=== PATIENT | female | born 1980 | race Caucasian/White ===

== ENCOUNTER 2019-06-30 00:43 | Inpatient (IN) | payer SELFPAY ==
[2019-06-30] VITALS (7 sets, daily range): BP systolic 105–126; BP diastolic 53–81; PULSE 79–98; RESP 16–22; TEMP 36.4–37.1; O2SAT 95–99; BMI 29.2
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
--- NOTE | 2019-06-30 00:52 | ECG_ITS ---
Measurements Intervals [place] Rate: 84 P: 61 DC: 199 QRS: 42 QRSD: 84 T: 56 QT: 398 QTc: 472 SINUS RHYTHM Compared to ECG 03/24/2018 10:22:27 Sinus arrhythmia no longer present Electronically Signed On 06-30-2019 18:33:03 INPATIENT PHARMACIST by Edwin Calzada M.D. [email or web address]
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
[2019-06-30 01:04] LABS: Basophils # 0.1 10^3/uL (0.0-0.1); Basophils % 0.6 %; Eosinophils # 0.1 10^3/uL (0.0-0.8); Hematocrit 39.4 % (37.0-47.0); Hemoglobin 13.2 g/dL (11.5-15.3); Lymphocytes # 1.7 10^3/uL (0.8-4.8); Lymphocytes % 13.2 %; Mean Corpuscular HGB Conc 33.5 g/dL (30.0-36.0); Mean Corpuscular Hemoglobin 31.5 pg (28.0-34.0); Mean Platelet Volume 9.9 fL (7.4-10.4); Monocytes # 0.5 10^3/uL (0.2-0.9); Monocytes % 3.9 %; Neutrophils # 10.2 10^3/uL (1.8-7.7); Nucleated Red Blood Cells % 0 %; Platelet Count 239 10^3/cmm (130-400); Red Blood Count 4.19 10^6/uL (4.1-5.3); Red Cell Distribution Width 13.4 % (12.1-15.1); White Blood Count 12.6 10^3/uL (4.0-10.0)
[2019-06-30 01:31] LABS: Alanine Aminotransferase 13 U/L (0-33); Albumin Level 4.1 g/dL (3.5-5.2); Alcohol Level 141 mg/dL (0-10); Alkaline Phosphatase 109 IU/L (35-105); Anion Gap 21.9 (5-19); Aspartate Amino Transferase 21 U/L (0-32); Blood Urea Nitrogen 17 mg/dL (6-20); Calcium 9.2 mg/dL (8.5-10.5); Carbon Dioxide 19 mmol/L (22-29); Chloride 101 mmol/L (98-107); Globulin 3.7 g/dL (1.3-4.6); Glomerular Filtration Rate 62.4 mL/min (90-130); Glucose 94 mg/dL (74-109); Potassium 3.9 mmol/L (3.5-5.1); Sodium 138 mmol/L (136-145); Thyroid Stimulating Hormone 5.77 uIU/mL (0.27-4.20); Total Bilirubin 0.2 mg/dL (0.15-1.2); Total Protein 7.8 g/dL (6.6-8.7)
[2019-06-30 01:38] LABS: HCG Qualitative Urine. Negative (Negative)
[2019-06-30 01:40] LABS: Acetaminophen < 5.0 ug/mL (10-30); Salicylate < 0.3 mg/dL (3-10)
[2019-06-30 01:56] LABS: Valproic Acid Level 2.8 mcg/mL (50-100)
[2019-06-30 01:57] LABS: Lithium 0.1 mmol/L (0.6-1.2)
[2019-06-30 02:05] LABS: Add Urine Microscopic? NO
[2019-06-30 02:16] LABS: Blood Urine Neg (Negative); Glucose Urine UA Norm (Normal); Ketones Urine 1+ (Negative); Nitrate Urine Negative (Negative); Protein Urine Neg (Negative); Urine Appearance Clear (CLEAR); Urine Color Yellow (Yellow); pH Urine 5 (5-7)
[2019-06-30 02:17] LABS: Bilirubin Urine Neg (NEGATIVE); Leukocyte Esterase Urine Negative (Negative); Urobilinogen Urine Norm (Negative)
[2019-06-30 02:22] LABS: Amphetamines Screen Urine Negative (Negative); Barbiturates Screen Urine Negative (Negative); Benzodiazepines Screen Urine Negative (Negative); Cocaine Screen Urine Negative (Negative); Opiate Screen Urine Negative (Negative); PCP Screen Urine Negative (Negative); THC Screen Urine Positive (Negative)
[2019-06-30] MEDS: multivitamin therapeutic Tablet 1 TAB PO (09:55)
[2019-06-30] MEDS: folic acid 1 mg Tablet PO (09:55)
[2019-06-30] MEDS: thiamine 100 mg Tablet PO (09:55)
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
[2019-06-30] MEDS: duloxetine 60 mg Capsule 120 MG PO (13:03)
[2019-06-30] MEDS: quetiapine 100 mg Tablet PO (20:31)
[2019-07-01 06:00] VITALS: BP 110/73; PULSE 69; RESP 18; TEMP 36.9; O2SAT 97
[2019-07-01] MEDS: folic acid 1 mg Tablet PO (08:38)
[2019-07-01] MEDS: multivitamin therapeutic Tablet 1 TAB PO (08:38)
[2019-07-01] MEDS: thiamine 100 mg Tablet PO (08:41)
[2019-07-01] MEDS: duloxetine 60 mg Capsule 120 MG PO (08:41)
[2019-07-01 13:31] VITALS: BP 130/86; PULSE 94; RESP 18; TEMP 36.9; O2SAT 97
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
[2019-07-01] MEDS: quetiapine 100 mg Tablet PO (20:22)
[2019-07-01 20:24] VITALS: BP 127/74; PULSE 87; RESP 20; TEMP 37; O2SAT 97
[2019-07-02 05:59] VITALS: BP 95/53; PULSE 78; RESP 20; TEMP 37.1; O2SAT 96
[2019-07-02] MEDS: duloxetine 60 mg Capsule 120 MG PO (08:48)
[2019-07-02] MEDS: thiamine 100 mg Tablet PO (08:48)
[2019-07-02] MEDS: folic acid 1 mg Tablet PO (08:48)
[2019-07-02] MEDS: multivitamin therapeutic Tablet 1 TAB PO (08:48)
[2019-07-02 14:00] VITALS: BP 113/66; PULSE 75; RESP 18; TEMP 37.1; O2SAT 97
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
[2019-07-02 14:08] VITALS: BP 95/53; PULSE 78; RESP 20; TEMP 37.1; O2SAT 96
[2019-07-02 14:17] VITALS: BP 95/53; PULSE 78; RESP 20; TEMP 37.1; O2SAT 96
== END 2019-07-02 15:16 | disposition home or self-care (01) | DRG 897 ==
LOC: ER 02:04 → NP 12:09
PROVIDERS: Emergency Provider Emergency Medicine
DX: F10.129 Alcohol abuse with intoxication, unspecified (principal); R45.851 Suicidal ideations; F32.9 Major depressive disorder, single episode, unspecified
CPT/HCPCS: 12345; 36415; 80053; 80164; 80178; 80307; 81003; 81025; 84443; 85025; 93005; 99282

== ENCOUNTER 2020-05-29 10:58 | Outpatient (CLI) | payer MEDICAID, SELFPAY ==
--- NOTE | 2020-05-29 11:01 | XR_ITS ---
WS: [id number] Exam: XR ribs RT 2V* [id number] Date/Time of Exam: 05/29/2020 11:26 AM Reason For Exam: right rib pain The right ribs are intact. No fracture. The right lung is fully inflated and clear. XR/XR ribs RT 2V* [id number] IMPRESSION: 1. Negative right rib study.
== END 2020-05-29 10:59 | disposition home or self-care (01) ==
LOC: RAD 11:00
PROVIDERS: Visit Provider Nurse Practitioner Family
DX: R07.81 Pleurodynia (principal)
CPT/HCPCS: 71100

== ENCOUNTER → 2020-06-24 10:13 | Outpatient (BNVA) | payer MEDICAID, SELFPAY | PROVIDERS: Visit Provider Nurse Practitioner Family | DX: Z20.828 Contact with and (suspected) exposure to other viral communicable diseases (principal) | CPT/HCPCS: 87635 ==

== ENCOUNTER → 2020-09-14 11:21 | Outpatient (BNVA) | payer MEDICAID, SELFPAY | PROVIDERS: Visit Provider Nurse Practitioner | DX: F31.81 Bipolar II disorder (principal) | CPT/HCPCS: 99214 ==

== ENCOUNTER 2020-11-04 09:36 | Emergency (ER) | payer MEDICAID, SELFPAY ==
[2020-11-04 09:45] VITALS: BP 132/90; PULSE 87; RESP 20; TEMP 36.8; O2SAT 98; BMI 33.0
--- NOTE | 2020-11-04 09:57 | W.ED.BACK ---
HPI - Back Pain/Injury General: Chief Complaint: Back Pain/Injury Stated Complaint: BACK PAIN Time Seen by Provider: 11/04/20 09:41 History of Present Illness: HPI Narrative: Patient is a 39-year-old female with back pain. Pain is on the left mid back region. She denies any acute trauma or accident. symptoms started approximately week ago when she pulled back muscle while working. She says the back pain was healing up and was getting better but today she woke up and had sharp pains mid upper back left side. She said her back was healing up this past week she did start working again for the past 2 days and thinks that might of flared up her existing back pain. She rates the pain a 10 out of 10. Denies fever, chills, nausea/vomiting, dysuria or hematuria. Associated symptoms: Deny abdominal pain, chills, dysuria, fatigue, fever(s), hematuria, nausea or vomiting Review of Systems Const: Denies: fever(s), chills or fatigue Eyes: Denies: change in vision or eye discomfort ENMT: Denies: throat pain, odynophagia, nasal discharge or nasal congestion Card: Denies: chest pain, palpitations, edema, swelling of feet/ankles, dyspnea on exertion or orthopnea Resp: Denies: dyspnea, productive cough or non-productive cough GI: Denies: abdominal pain, nausea, vomiting, diarrhea, constipation or hematochezia : Denies: flank pain, dysuria or hematuria Musc: Reports: back pain; Denies: neck pain or extremity swelling Skin/Breast: Denies: rash or new lesions Neuro: Denies: headache(s), numbness in extremities or weakness in extremities PFSH ED PFSH: Medical History Bipolar II disorder Fistula Tubal Surgical History History of cholecystectomy Previous section Family History Grandmother Hypercholesteremia Paternal Denies family history of Colon cancer Ovarian cancer Diabetes Heart disease Breast cancer Bleeding disorder Hypertension Uterine cancer Thyroid disease Stroke Social History Smoking and tobacco status: never smoked Alcohol intake: current Alcohol intake frequency: few times a week Additional social history: - Tobacco use: Alcohol use: Drug use: Female Reproductive History: Para: 1 Spontaneous abortions: No Physical Exam Const: COMMON NORMALS: no acute distress, patient oriented x3 and alert GENERAL APPEARANCE: cooperative and comfortable HENMT: COMMON NORMALS: normocephalic HEAD & SCALP: normocephalic MOUTH: Normal oral and palatal mucosa present THROAT: posterior oropharynx normal and uvula midline Eye: COMMON NORMALS: Equal, round and reactive pupils present PUPIL: Yes Equal, round and reactive pupils present Neck/C-Spine: COMMON NORMALS: supple GENERAL: Yes normal visual inspection Resp: COMMON NORMALS: normal respiratory effort, No retractions, No use of accessory muscles and clear to auscultation bilaterally AUSCULTATION: clear to auscultation bilaterally Cardio: COMMON NORMALS: regular rate, regular rhythm, S1 normal heart sound present, S2 normal heart sound present, No gallops present (Cardio), No clicks present (Cardio), No murmurs present (Cardio) and Peripheral pulses 2+ throughout RATE: regular rate RHYTHM: regular rhythm HEART SOUNDS: S1 normal heart sound present and S2 normal heart sound present PERIPHERAL PULSES: Peripheral pulses 2+ throughout GI: COMMON NORMALS: Normal to inspection, nondistended, normoactive bowel sounds present, Soft to palpation, non-tender and no masses PALPATION: Yes Soft to palpation : COMMON NORMALS: Yes no CVA tenderness BLADDER/KIDNEY EXAM: Yes no CVA tenderness Back/Pelvis: COMMON NORMALS: no CVA tenderness THORACIC SPINE/UPPER BACK: Yes pain with ROM, No thoracic spinal tenderness, Yes paraspinal muscle tenderness Thoracic paraspinal muscle tenderness: left Left thoracic paraspinal muscle tenderness: T5, T6 and T7 and Yes other soft tissue findings Other thoracic soft tissue findings laterality: left Left other thoracic soft tissue findings details: tenderness (Muscular tenderness) Extremity: COMMON NORMALS: normal to inspection Neuro: COMMON NORMALS: patient oriented x3 SENSORIUM/ORIENTATION: Yes alert Skin: GENERAL SKIN EXAM: dry skin Course Vital Signs: Vital signs: Vital Signs Temperature 98.7 F 11/04/20 11:27 Pulse Rate 72 11/04/20 11:27 Respiratory Rate 17 11/04/20 11:27 Blood Pressure 130/88 11/04/20 11:27 Pulse Oximetry 98 11/04/20 11:27 MDM - Back Pain/Injury MDM Narrative: Medical decision making narrative: Patient is a 39-year-old female comes to the ED with left upper back pain. Denies any acute injury or trauma. Patient says she strained her back muscle at work over a week ago and that patient has some muscular tenderness on left side patient's upper back. No other acute findings. Patient was diagnosed with muscle strain of left upper back discharged home with a prescription for Flexeril and ibuprofen 800 mg. Follow-up with PCP in 7 to 10 days for reevaluation. Return to ED precautions given. Patient understood and agreed with plan. Discharge Plan Discharge Patient Disposition: Home Clinical Impression: Muscle strain of left upper back Qualifiers: Encounter type: initial encounter Qualified Code(s): S29.012A - Strain of muscle and tendon of back wall of thorax, initial encounter Condition: Stable Prescriptions: New cyclobenzaprine 10 mg tablet 10 mg PO BID PRN (Reason: muscle spasm) Qty: 20 RF: 0 ibuprofen 800 mg tablet 800 mg PO Q8H PRN (Reason: pain) Qty: 20 RF: 0 Zofran 4 mg tablet 4 mg PO Q8H Qty: 12 RF: 0 No Action albuterol sulfate [ProAir HFA] 90 mcg/actuation HFA aerosol inhaler 2 puff INHALATION QID PRN (Reason: shortness of breath or wheezing) RF: 0 acamprosate 333 mg tablet,delayed release (DR/EC) 666 mg PO TID Qty: 180 RF: 0 duloxetine [Cymbalta] 30 mg capsule,delayed release(DR/EC) 90 mg PO DAILY Qty: 90 RF: 1 Seroquel 100 mg tablet 100 mg PO DAILY PRN (Reason: severe agitation/anxiety) 30 Days Qty: 30 RF: 1 quetiapine [Seroquel] 400 mg tablet 400 mg PO .HS Qty: 30 RF: 1 ibuprofen 800 mg tablet 800 mg PO TID PRN (Reason: pain) Qty: 20 RF: 0 Discharge Orders: Discharge ED (Routine); Ordered 11/04/20 Ordered By: Akira Gilbert Discharge Diet: Regular Discharge Activity: Increase activity as tolerated Patient Instructions: Muscle Strain (ED), Back Pain (ED) Activity Restrictions/Additional Instructions: Follow-up with medical provider as directed in 7 to 10 days. Apply cold pack or heat pack on sore area of back to help with symptoms. Rest and stretch daily. Take medications as prescribed. Return to the ER or your medical provider if condition worsens. Please read and understand discharge instructions. Thank you for choosing [facility] for your healthcare needs today. Please realize this is an emergency room and that we are providing you with a medical screening exam and this may not be complete and all inclusive of all the testing and or work up that you may need to determine your ailment or severity of your illness. It is very important that you follow up as instructed or that you return to the Emergency Department should you have concerns or if your condition changes or worsens in any way. Stand Alone Forms: Work/School Release Coding Level of Care Code ED Public Health Educator for Yenifer Bonilla Exam Comprehensive
[2020-11-04 10:02] VITALS: RESP 19
[2020-11-04] MEDS: morphine 4 mg/mL SDV 1 mL IM (10:02)
[2020-11-04] MEDS: orphenadrine 30 mg/mL Inj 2 mL 60 MG IM (10:02)
[2020-11-04] MEDS: ondansetron 2 mg/ML SDV 2 mL 4 MG IM (11:25)
[2020-11-04 11:27] VITALS: BP 130/88; PULSE 72; RESP 17; TEMP 37.1; O2SAT 98
== END 2020-11-04 11:30 | disposition home or self-care (01) ==
PROVIDERS: Emergency Provider Physician Assistant
DX: S29.012A Strain of muscle and tendon of back wall of thorax, initial encounter (principal); X50.9XXA Other and unspecified overexertion or strenuous movements or postures, initial encounter
CPT/HCPCS: 96372; 99283; J2270; J2360; J2405

== ENCOUNTER → 2020-11-07 09:47 | Outpatient (BNVA) | payer MEDICAID, SELFPAY | PROVIDERS: Visit Provider Nurse Practitioner | DX: F31.9 Bipolar disorder, unspecified (principal) | CPT/HCPCS: 99214 ==

== ENCOUNTER → 2020-12-19 07:16 | Outpatient (BNVA) | payer MEDICAID, SELFPAY | PROVIDERS: Visit Provider Nurse Practitioner | DX: F31.81 Bipolar II disorder (principal) | CPT/HCPCS: 99214 ==

== ENCOUNTER → 2021-03-09 12:00 | Outpatient (BNVA) | payer MEDICAID, SELFPAY | PROVIDERS: Visit Provider Nurse Practitioner | DX: F31.81 Bipolar II disorder (principal); F12.20 Cannabis dependence, uncomplicated | CPT/HCPCS: 99214 ==

== ENCOUNTER 2021-04-25 16:21 | Emergency (ER) | payer MEDICAID, SELFPAY ==
--- NOTE | 2021-04-25 16:32 | XRR_ITS ---
PROCEDURE INFORMATION: Exam: XR Left Foot Exam date and time: 04/25/2021 4:32 PM Age: 40 years old Clinical indication: Pain and injury or trauma; Other: No injury per PT; Blunt trauma; Left; Patient HX: Lt. Foot pain x 1 month; Additional info: Left foot injury TECHNIQUE: Imaging protocol: XR Left foot. Views: 3 or more views. COMPARISON: No relevant prior studies available. FINDINGS: Bones/joints: There is moderate plantar calcaneal spur. There is no evidence of fracture or dislocation. Soft tissues: Normal. XR/XR foot LT min 3V* [id number] IMPRESSION: 1. No acute finding. 2. Plantar calcaneal spur. Radiation Dose CTDIVOL = (mGy): DLP = (mGy-cm)
[2021-04-25 16:52] VITALS: BP 121/83; PULSE 83; RESP 16; TEMP 36.8; O2SAT 99
--- NOTE | 2021-04-25 17:09 | ED_ITS ---
HPI - Extremity Problem General: Chief complaint: Extremity Problem,Nontraumatic Stated complaint: LEFT FOOT INJURY Time Seen by Provider: 04/25/21 17:08 History of Present Illness: HPI Narrative: Patient is a 40-year-old female comes to the ED with left heel pain. Patient says she has had this pain for several months and has seen her PCP several weeks ago received a injection around her heel to help with pain. She denies any reinjury or trauma but says t he pain is started up again in the heel. She takes [id number] ibuprofen to help with the pain. Patient says symptoms get worse throughout the day as she has been up and ambulating. Associated symptoms: Deny chest pain, fever(s) or rash Review of Systems Const: Denies: fever(s), chills or fatigue Eyes: Denies: change in vision or eye discomfort ENMT: Denies: throat pain, odynophagia, nasal discharge or nasal congestion Card: Denies: chest pain, palpitations, edema, swelling of feet/ankles, dyspnea on exertion or orthopnea Resp: Denies: dyspnea, productive cough or non-productive cough GI: Denies: abdominal pain, nausea, vomiting, diarrhea, constipation or hematochezia : Denies: flank pain, dysuria or hematuria Musc: Reports: extremity pain (Left heel); Denies: neck pain, back pain or extremity swelling Skin/Breast: Denies: rash or new lesions Neuro: Denies: headache(s), numbness in extremities or weakness in extremities PFS ED PFSH: Medical History Bipolar II disorder Cannabis dependence, uncomplicated Fistula Psychiatric care Tubal Surgical History History of cholecystectomy Previous section Family History Grandmother Hypercholesteremia Paternal Denies family history of Colon cancer Ovarian cancer Diabetes Heart disease Breast cancer Bleeding disorder Hypertension Uterine cancer Thyroid disease Stroke Social History Smoking and tobacco status: never smoked Alcohol intake: current Alcohol intake frequency: few times a week Additional social history: - Tobacco use: Alcohol use: Drug use: Female Reproductive History: Para: 1 Spontaneous abortions: No Physical Exam Const: COMMON NORMALS: no acute distress, patient oriented x3 and alert GENERAL APPEARANCE: cooperative and comfortable HENMT: COMMON NORMALS: normocephalic HEAD & SCALP: normocephalic MOUTH: Normal oral and palatal mucosa present THROAT: posterior oropharynx normal and uvula midline Neck/C-Spine: COMMON NORMALS: supple GENERAL: Yes normal visual inspection Resp: COMMON NORMALS: normal respiratory effort, No retractions, No use of accessory muscles and clear to auscultation bilaterally AUSCULTATION: clear to auscultation bilaterally Cardio: COMMON NORMALS: regular rate, regular rhythm, S1 normal heart sound present, S2 normal heart sound present, No gallops present (Cardio), No clicks present (Cardio), No murmurs present (Cardio) and Peripheral pulses 2+ throughout RATE: regular rate RHYTHM: regular rhythm HEART SOUNDS: S1 normal heart sound present and S2 normal heart sound present PERIPHERAL PULSES: Peripheral pulses 2+ throughout GI: COMMON NORMALS: Normal to inspection, nondistended, normoactive bowel sounds present, Soft to palpation, non-tender and no masses PALPATION: Yes Soft to palpation : COMMON NORMALS: Yes no CVA tenderness BLADDER/KIDNEY EXAM: Yes no CVA tenderness Back/Pelvis: COMMON NORMALS: no CVA tenderness Extremity: GENERAL: Yes normal exam except as noted LEFT LOWER EXTREMITY: Yes foot & digits Left foot and digits: Yes palpation (Tenderness over plantar aspect of heel.) Neuro: COMMON NORMALS: patient oriented x3 and moves all extremities SENSORIUM/ORIENTATION: Yes alert Skin: GENERAL SKIN EXAM: dry skin Course Vital Signs: Vital signs: Vital Signs Temperature 98.2 F 04/25/21 16:52 Pulse Rate 83 04/25/21 16:52 Respiratory Rate 16 04/25/21 16:52 Blood Pressure 121/83 04/25/21 16:52 Pulse Oximetry 99 04/25/21 16:52 MDM - Extremity (Nontraumatic) MDM Narrative: Medical decision making narrative: Patient is a 40-year-old female comes to the ED with left heel pain. She has been dealing with this pain for the past couple months and has had a injection in heel by PCP in the past to help with symptoms. Denies any acute injury or trauma to cause symptoms. X-ray of left foot shows no acute findings. Patient diagnosed with plantar fasciitis and she was discharged home. She was sent home with a prescription for Celebrex for pain and told to rest and ice left foot elbow symptoms. Return to ED precautions given. Patient understood agree with plan. Imaging Data^: Xray Ortho: Attestation: I personally reviewed and interpreted this imaging study as follows: Radiologist's impression: [address], [place] [address]BNji ReportSigned Patient: Maru Piedra #: [id number]: 1980Acct#:[id number]/Sex: 40 / FADM Date: 04/25/21Loc: ERRoom/Bed:Attending Dr: Ordering Provider/Ordering MD: Gifty Barron Date of Service: 04/25/21 Procedure(s): XR foot LT min 3V* [id number] Accession Number(s): [id number] Report Number: [id number] PROCEDURE INFORMATION: Exam: XR Left Foot Exam date and time: 04/25/2021 4:32 PM Age: 40 years old Clinical indication: Pain and injury or trauma; Other: No injury per PT; Blunt trauma; Left; Patient HX: Lt. Foot pain x 1 month; Additional info: Left foot injury TECHNIQUE: Imaging protocol: XR Left foot. Views: 3 or more views. COMPARISON: No relevant prior studies available. FINDINGS: Bones/joints: There is moderate plantar calcaneal spur. There is no evidence of fracture or dislocation. Soft tissues: Normal. XR/XR foot LT min 3V* [id number] IMPRESSION: 1. No acute finding. 2. Plantar calcaneal spur. Radiation Dose CTDIVOL = (mGy): DLP = (mGy-cm) Dictated By:Shayna Coker By:Shayna Coker Date/Time:04/25/21 174DD/ 163 Discharge Plan Discharge Patient Disposition: Home Clinical Impression: Plantar fasciitis, Plantar fasciitis of left foot Condition: Stable Prescriptions: New Celebrex 100 mg capsule 100 mg PO BID PRN (Reason: pain) Qty: 20 RF: 0 No Action albuterol sulfate [ProAir HFA] 90 mcg/actuation HFA aerosol inhaler 2 puff INHALATION QID PRN (Reason: shortness of breath or wheezing) RF: 0 quetiapine [Seroquel] 400 mg tablet 400 mg PO .HS Qty: 30 RF: 2 duloxetine [Cymbalta] 60 mg capsule,delayed release(DR/EC) 120 mg PO DAILY Qty: 60 RF: 2 acamprosate 333 mg tablet,delayed release (DR/EC) 666 mg PO TID Qty: 180 RF: 2 quetiapine [Seroquel] 100 mg tablet 100 mg PO .HS Qty: 30 RF: 2 ibuprofen 800 mg tablet 800 mg PO Q8H PRN (Reason: pain) Qty: 20 RF: 0 Zofran 4 mg tablet 4 mg PO Q8H Qty: 12 RF: 0 Discharge Orders: Discharge ED (Routine); Ordered 04/25/21 Ordered By: Akira Gilbert Discharge Diet: Regular Discharge Activity: Resume usual activity Patient Instructions: Plantar Fasciitis (ED), Plantar Fasciitis Exercises (ED) Activity Restrictions/Additional Instructions: Follow-up with medical provider as directed in 7 to 10 days for reevaluation. Take medications as prescribed. Apply cold pack on left foot to help with symptoms. Return to the ER or your medical provider if condition worsens. Please read and understand discharge instructions. Thank you for choosing [facility] for your healthcare needs today. Please realize this is an emergency room and that we are providing you with a medical screening exam and this may not be complete and all inclusive of all the testing and or work up that you may need to determine your ailment or severity of your illness. It is very important that you follow up as instructed or that you return to the Emergency Department should you have concerns or if your condition changes or worsens in any way. Coding Level of Care Code ED Beamer Helper for Yenifer Fwtae Exam Comprehensive
== END 2021-04-25 17:32 | disposition home or self-care (01) ==
PROVIDERS: Emergency Provider Physician Assistant
DX: M72.2 Plantar fascial fibromatosis (principal); F31.81 Bipolar II disorder
CPT/HCPCS: 73630; 99282

== ENCOUNTER → 2021-06-09 10:20 | Outpatient (BNVA) | payer MEDICAID, SELFPAY | PROVIDERS: Visit Provider Family Medicine | DX: N39.0 Urinary tract infection, site not specified (principal) | CPT/HCPCS: 81000 ==

== ENCOUNTER → 2021-07-11 11:07 | Outpatient (BNVA) | payer MEDICAID, SELFPAY | PROVIDERS: Visit Provider Nurse Practitioner | DX: F31.81 Bipolar II disorder (principal); F12.20 Cannabis dependence, uncomplicated; Z79.899 Other long term (current) drug therapy | CPT/HCPCS: 99214 ==

== ENCOUNTER → 2021-07-28 11:36 | Outpatient (BNVA) | payer MEDICAID, SELFPAY | PROVIDERS: Visit Provider Nurse Practitioner | DX: Z20.822 Contact with and (suspected) exposure to COVID-19 (principal) | CPT/HCPCS: 87400; 87635 ==

== ENCOUNTER → 2021-11-06 09:20 | Outpatient (BNVA) | payer MEDICAID, SELFPAY | PROVIDERS: Visit Provider Nurse Practitioner | DX: F31.81 Bipolar II disorder (principal); F12.20 Cannabis dependence, uncomplicated | CPT/HCPCS: 99214 ==

== ENCOUNTER → 2022-08-12 10:56 | Outpatient (BNVA) | payer MEDICAID, SELFPAY | PROVIDERS: PCP Family Medicine; Visit Provider Family Medicine | DX: F31.81 Bipolar II disorder (principal) | CPT/HCPCS: 80053; 80061; 85025 ==

== ENCOUNTER → 2023-07-21 12:15 | Outpatient (BNVA) | payer MEDICAID, SELFPAY | PROVIDERS: PCP Family Medicine; Visit Provider Nurse Practitioner | DX: Z79.899 Other long term (current) drug therapy (principal) | CPT/HCPCS: 80061; 83036 ==

== ENCOUNTER → 2024-08-27 09:37 | Outpatient (BNVA) | payer MEDICAID, SELFPAY | PROVIDERS: PCP Family Medicine; Visit Provider Nurse Practitioner | DX: Z79.899 Other long term (current) drug therapy (principal) | CPT/HCPCS: 80061; 83036 ==

== ENCOUNTER 2024-12-11 03:54 | Inpatient (IN) | payer SELFPAY ==
[2024-12-11 04:09] VITALS: BP 165/87; PULSE 107; RESP 24; TEMP 36.9; O2SAT 96; BMI 35.9
--- NOTE | 2024-12-11 04:26 | ECG_ITS ---
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 Measurements Intervals [place] Rate: 91 P: 2 MS: 159 QRS: 72 QRSD: 80 T: 47 QT: 359 QTc: 443 Interpretive Statements SINUS RHYTHM No previous ECG available for comparison Electronically Signed On 12-14-2024 10:12:56 CDT by Cecelia Begum M.D. [id number]
[2024-12-11 04:41] LABS: Glucose Urine UA Negative (Normal); Nitrate Urine Negative (Negative); Specific Gravity, Urine 1.014 (1.005-1.030)
[2024-12-11 04:46] LABS: Add Urine Microscopic? YES
--- NOTE | 2024-12-11 05:03 | ED.C_ITS ---
HPI - Psych 2 General: Chief Complaint: Psychiatric Symptoms Stated Complaint: HI Time Seen by Provider: 12/11/24 04:38 History of Present Illness: 44-year-old female with a history of dep ression. She has some suicidal ideations and that she does not want to do life anymore . She does not have a specific plan. She is tearful. She would like to stay and see psychiatrist to get help. She has a history of bipolar disease, takes Seroquel and Cymbalta for this. No other significant health problems she says. She was in an argument with her earlier in the evening, felt unsafe at home, and tried to drive to a family member's house. She got pulled over and received a DUI. Related Data Previous Rx's ?Medication ?Instructions ?Recorded ibuprofen 800 mg tablet 800 mg PO Q8H PRN pain #20 t abs 11/04/20 fluticasone propionate 50 2 spray intranasal DAILY PRN 09/16/22 mcg/actuation nasal allergy symptoms #16 grams spray,suspension albuterol sulfate 90 mcg/actuation 1 inh inhalation QI D PRN shortness 08/11/23 aerosol inhaler of breath or wheezing #8.5 g estefany budesonide-formoterol HFA 80 See Rx Instructions .Rout e 08/11/23 mcg-4.5 mcg/actuation aerosol .COMPLEX #10.2 grams inhaler (Symbicort) quetiapine 100 mg tablet See Rx Instructions .Route 0 08/23/24 .COMPLEX #60 tabs quetiapine 300 mg tablet See Rx Instructions .Route 0 08/23/24 .COMPLEX #60 tabs fluconazole 150 mg tablet 150 mg PO Q3D 2 doses #2 tab s 11/28/24 duloxetine 60 mg capsule,delayed 60 mg PO DAILY #30 ca ps 12/05/24 release (Cymbalta) Allergies Allergy/AdvReac Type Severity Reaction Status Date / Time codeine Allergy Mild ADR-Nausea Verified 11/28/24 10:59 PFS ED 2 PFSH: Medical History No pertinent past medical history neghx: htn,dm,thyroid,dvt/pe Asthma Anxiety Cannabis use disorder, moderate, in early remission, dependence On combination antipsychotic drug therapy Bipolar II disorder Fistula Tubal Surgical History Hx of tubal ligation (~2002) History of cholecystectomy Previous section Family History Grandmother Hypercholesteremia Paternal Mother Bipolar 1 disorder Moderate major depression Father Diabetes Other Dementia Denies family history of Colon cancer Ovarian cancer CAD (coronary artery disease) Clotting disorder Heart disease Chronic kidney disease (CKD) Breast cancer Anesthesia complication Bleeding disorder Lung disease Cancer Hypertension Uterine cancer Thyroid disease Stroke Social History Smoking and tobacco/nicotine status: never used tobacco/nicotine Alcohol intake: current Alcohol intake frequency: holidays/special occasions only Alcohol type: beer Substance/Drug Use: never Lives independently: Yes Marital status: Number of children: 4 service: No Current occupational status: employed 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 Current gender identity: Female Special mira needs: No Agree to transfusion: Yes Female Reproductive History: Para: 1 Spontaneous abortions: No Physical Exam 2 Const: COMMON NORMALS: no acute distress GENERAL APPEARANCE: cooperative; not ill appearing and not frail appearing HENMT: COMMON NORMALS: normocephalic, atraumatic and Normal external nose present HEAD & SCALP: normocephalic and atraumatic FACE & SINUS: normal facial exam and face symmetric NOSE: Normal external nose present Eye: COMMON NORMALS: Equal, round and reactive pupils present and EOMs intact bilaterally PUPIL: Yes Equal, round and reactive pupils present Neck/C-Spine: GENERAL: Yes trachea midline Chest: CHEST: Yes Symmetrical chest wall rise Resp: COMMON NORMALS: normal respiratory effort, No retractions, No use of accessory muscles and clear to auscultation bilaterally AUSCULTATION: clear to auscultation bilaterally Cardio: COMMON NORMALS: regular rate and regular rhythm RATE: regular rate RHYTHM: regular rhythm GI: COMMON NORMALS: Normal to inspection, nondistended, normoactive bowel sounds present Extremity: COMMON NORMALS: no pedal edema Neuro: JASMYN COMA SCALE: document GCS findings Jasmyn coma scale eye opening: Spontaneous Jasmyn coma scale verbal response: Orientated [place] coma scale motor response: Obey commands [place] coma scale total score: 15 S ENSORY EXAM: Yes extremities (intact) Psych: COMMON NORMALS: speech normal SPEECH: Yes normal speech Skin: COMMON NORMALS: no rashes or lesions noted GENERAL SKIN EXAM: no rashes or lesions noted Course 2 Vital Signs: Vital signs: Vital Signs Temperature 98.1 F 12/11/24 14:00 Pulse Rate 77 12/11/24 14:00 Respiratory Rate 16 12/11/24 14:00 Blood Pressure 137/88 12/11/24 14:00 Pulse Oximetry 96 12/11/24 14:00 Oxygen Delivery Me thod Room Air 12/11/24 10:53 MDM - Psych Medical Decision Making Patient is medically stable. She does not appear intoxicated anymore. She is very tearful, has had thoughts of not wanting to live, and would like help. We will ask psychiatry to see her in the neuropsychiatric unit if we have a bed. Lab Data 12/11/24 05:02 12/11/24 05:02 Laboratory Results WBC 5.25 10^3/uL (3.29-11.43) 12/11/24 05:02 RBC 4.15 10^6/uL (3.85-5.65) 12/11/24 05:02 Hgb 13.00 g/dL (11.27-16.99) 12/11/24 05:02 Hct 38.6 % (36-47) 12/11/24 05:02 MCV 93.0 fl (85-98) 12/11/24 05:02 MCH 31.3 pg (27-33) 12/11/24 05:02 MCHC 33.7 g/dL (30-55) 12/11/24 05:02 RDW 13.6 % (12.1-15.1) 12/11/24 05:02 Plt Count 235 10^3/cmm (157-399) 12/11/24 05:02 MPV 9.7 fL (7.4-10.4) 12/11/24 05:02 Neut % (Auto) 55.0 % 12/11/24 05:02 Lymph % (Auto) 35.8 % 12/11/24 05:02 [place] % (Auto) 7.8 % 12/11/24 05:02 Eos % (Auto) 0.2 % 12/11/24 05:02 Baso % (Auto) 0.8 % 12/11/24 05:02 Neut # (Auto) 2.89 10^3/uL (1.8-7.7) 12/11/24 05:02 Lymph # (Auto) 1.9 10^3/uL (0.8-4.8) 12/11/24 05:02 [place] # (Auto) 0.4 10^3/uL (0.2-0.9) 12/11/24 05:02 Eos # (Auto) 0.0 10^3/uL (0.0-0.8) 12/11/24 05:02 Baso # (Auto) 0.0 10^3/uL (0.0-0.1) 12/11/24 05:02 Nucleated RBC % (auto) 0 % 12/11/24 05:02 Nucleated RBCs # 0.0 /100WBC 12/11/24 05:02 Sodium 138 mmol/L (136-145) 12/11/24 05:02 Potassium 4.1 mmol/L (3.5-5.1) 12/11/24 05:02 Chloride 102 mmol/L (98-107) 12/11/24 05:02 Carbon Dioxide 22 mmol/L (22-29) 12/11/24 05:02 Anion Gap 18.1 (5-19) 12/11/24 05:02 BUN 12 mg/dL (6-20) 12/11/24 05:02 Creatinine 0.9 mg/dL (0.5-0.9) 12/11/24 05:02 GFR Calculation 68.3 mL/min (90-130) L 12/11/24 05:02 Glucose 93 mg/dL (65-115) 12/11/24 05:02 Calculated Osmolality 285 mOsm/kg (285-295) 12/11/24 05:02 Calcium 8.9 mg/dL (8.5-10.5) 12/11/24 05:02 Total Bilirubin 0.2 mg/dL (0.15-1.2) 12/11/24 05:02 AST 27 U/L (0-32) 12/11/24 05:02 ALT 22 U/L (0-33) 12/11/24 05:02 Alkaline Phosphatase 117 U/L (35-105) H 12/11/24 05:02 Total Protein 7.9 g/dL (6.6-8.7) 12/11/24 05:02 Albumin 4.3 g/dL (3.5-5.2) 12/11/24 05:02 Globulin 3.6 g/dL (1.3-4.6) 12/11/24 05:02 HCG, Qual Negative (Negative) 12/11/24 04:20 Urine Color Yellow (Yellow) 12/11/24 04:20 Urine Appearance Clear (CLEAR) 12/11/24 04:20 Urine pH 5.5 (5-7) 12/11/24 04:20 Ur Specific [place] 1.014 (1.005-1.030) 12/11/24 04:20 Urine Protein 1+ (Negative) A 12/11/24 04:20 Urine Glucose (UA) Negative (Normal) 12/11/24 04:20 Urine Ketones Negative (Negative) 12/11/24 04:20 Urine Blood Negative (Negative) 12/11/24 04:20 Urine Nitrate Negative (Negative) 12/11/24 04:20 Urine Bilirubin Negative (Negative) 12/11/24 04:20 Urine Urobilinogen 0.2 mg/dL (Negative) 12/11/24 04:20 Ur Leukocyte Esterase Negative (Negative) 12/11/24 04:20 Urine RBC 0-2 /hpf (0-2) 12/11/24 04:20 Urine WBC 0-5 /hpf (0-5) 12/11/24 04:20 Ur Squamous Epith Cells 0-5 /hpf (0-5) 12/11/24 04:20 Amorphous Sediment Not Reportable 12/11/24 04:20 Urine Bacteria None seen /hpf (NONE) 12/11/24 04:20 Hyaline Casts 4.11 /lpf 12/11/24 04:20 Salicylates < 0.3 mg/dL (3-10) L 12/11/24 05:02 Urine Opiates Screen Negative ng/mL (Negative) 12/11/24 04:20 Acetaminophen < 5.0 ug/mL (10-30) L 12/11/24 05:02 Ur Barbiturates Screen Negative ng/mL (Negative) 12/11/24 04:20 Ur Phencyclidine Scrn Negative ng/mL (Negative) 12/11/24 04:20 Ur Amphetamines Screen Negative ng/mL (Negative) 12/11/24 04:20 U Benzodiazepines Scrn Negative ng/mL (Negative) 12/11/24 04:20 Urine Cocaine Screen Negative ng/mL (Negative) 12/11/24 04:20 U Marijuana (THC) Screen Positive ng/mL (Negative) H 12/11/24 04:20 Ethyl Alcohol 104 mg/dL (0-10) H 12/11/24 05:02 No radiology studies performed this visit Discharge Plan Discharge Patient Disposition: Admitted As Inpatient Admit Provider: Jesús Fitzgerald Clinical Impression: Suicidal ideation, Depression Condition: Stable Coding Level of Care Code ED Electrical Line Mechanic for Yenifer Bonilla
[2024-12-11 05:04] LABS: PCP Screen Urine Negative (Negative)
[2024-12-11 05:07] LABS: Hematocrit 38.6 % (36-47); Hemoglobin 13.00 g/dL (11.27-16.99); Mean Corpuscular HGB Conc 33.7 g/dL (30-55); Mean Corpuscular Hemoglobin 31.3 pg (27-33); Mean Corpuscular Volume 93.0 fl (85-98); Nucleated Red Blood Cells % 0 %; Platelet Count 235 10^3/cmm (157-399); Red Blood Count 4.15 10^6/uL (3.85-5.65); White Blood Count 5.25 10^3/uL (3.29-11.43)
[2024-12-11 05:25] LABS: HCG Qualitative Urine. Negative (Negative)
[2024-12-11 05:28] LABS: Alanine Aminotransferase 22 U/L (0-33); Albumin Level 4.3 g/dL (3.5-5.2); Alkaline Phosphatase 117 U/L (35-105); Anion Gap 18.1 (5-19); Aspartate Amino Transferase 27 U/L (0-32); Blood Urea Nitrogen 12 mg/dL (6-20); Calcium 8.9 mg/dL (8.5-10.5); Carbon Dioxide 22 mmol/L (22-29); Chloride 102 mmol/L (98-107); Creatinine Clr Calc Pharmacy 80.3547; Globulin 3.6 g/dL (1.3-4.6); Glucose 93 mg/dL (65-115); Osmolality Calculated 285 mOsm/kg (285-295); Potassium 4.1 mmol/L (3.5-5.1); Sodium 138 mmol/L (136-145); Total Protein 7.9 g/dL (6.6-8.7)
[2024-12-11 05:29] LABS: Acetaminophen < 5.0 ug/mL (10-30); Alcohol Level 104 mg/dL (0-10); Salicylate < 0.3 mg/dL (3-10)
--- NOTE | 2024-12-11 09:29 | PC.NURSE ---
Report given to IMANI Myles
[2024-12-11 09:39] VITALS: BP 147/89; PULSE 75; RESP 18; TEMP 36.6; O2SAT 97
[2024-12-11 10:53] VITALS: PULSE 97; RESP 16; O2SAT 95
[2024-12-11] MEDS: multivitamin therapeutic Tablet 1 TAB PO (11:40)
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
[2024-12-11 14:00] VITALS: BP 137/88; PULSE 77; RESP 16; TEMP 36.7; O2SAT 96
[2024-12-11 20:34] VITALS: BP 87/52; PULSE 77; RESP 18; TEMP 36.8; O2SAT 97
[2024-12-12 06:00] VITALS: BMI 36.3
[2024-12-12 06:41] VITALS: BP 107/57; PULSE 89; RESP 18; TEMP 36.5; O2SAT 94
[2024-12-12 08:23] VITALS: PULSE 77; RESP 16; O2SAT 99
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
[2024-12-12 12:00] VITALS: BP 139/82; PULSE 78; RESP 17; TEMP 36.7; O2SAT 99
[2024-12-12 16:00] VITALS: BP 136/79; PULSE 82; RESP 17; TEMP 36.7; O2SAT 99
[2024-12-12 19:44] VITALS: BP 126/83; PULSE 61; RESP 17; TEMP 36.7; O2SAT 97
--- NOTE | 2024-12-13 00:18 | PC.NURSE ---
vs not completed per nurse, resp 16
[2024-12-13 04:00] VITALS: BP 101/53; PULSE 79; RESP 17; TEMP 36.8; O2SAT 97
[2024-12-13 07:46] VITALS: BP 116/76; PULSE 82; RESP 16; TEMP 36.5; O2SAT 96
[2024-12-13 09:14] VITALS: PULSE 89; RESP 16; O2SAT 98
[2024-12-13 11:10] VITALS: BP 109/70; PULSE 77; RESP 16; TEMP 36.9; O2SAT 95
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
[2024-12-13 14:23] VITALS: BP 109/76; PULSE 77; RESP 16; TEMP 36.9; O2SAT 95
== END 2024-12-13 15:48 | disposition home or self-care (01) | DRG 885 ==
LOC: ER 05:15 → NP 06:18
PROVIDERS: Admitting Provider Psychiatry & Neurology Psychiatry; Emergency Provider Emergency Medicine; PCP Family Medicine; Visit Provider Psychiatry & Neurology Psychiatry
DX: F31.81 Bipolar II disorder (principal); R45.851 Suicidal ideations; F10.90 Alcohol use, unspecified, uncomplicated; J45.909 Unspecified asthma, uncomplicated; F41.9 Anxiety disorder, unspecified; F12.21 Cannabis dependence, in remission; E66.9 Obesity, unspecified; Z68.36 Body mass index [BMI] 36.0-36.9, adult
CPT/HCPCS: 36415; 80053; 80306; 80307; 81001; 81025; 85025; 93005; 94640; 97150; 97165; 99285; J7611; J7613; J9999; Q0162

== ENCOUNTER 2025-02-15 10:33 | Emergency (ER) | payer SELFPAY ==
[2025-02-15 10:52] VITALS: BP 125/90; PULSE 78; RESP 18; TEMP 36.8; O2SAT 98; BMI 36.8
--- NOTE | 2025-02-15 14:04 | ED_ITS ---
Documented by User: MARLIN Olvera 02/15/25 14:54 HPI - Back Pain/Injury General: Chief Complaint: Back Pain/Injury Stated Complaint: back pain Time Seen by Provider: 02/15/25 13:48 Source: patient Mode of arrival: ambulatory Limitations: no limitations History of Present Illness: Patient is a 44-year-old female who presents emergency department planing of left lower back pain that began Friday. She states that she fell while drinking, and since then has had pain. States that it hurts with twisting, does not radiate and is to the left lower back. Is able to walk without difficulty. She is not reporting any bowel or bladder incontinence or saddle anesthesia. Has not take any medications. No urinary symptoms or history of kidney stones. No direct trauma reported. Does not report any fevers, trauma, unexplained weight loss, neurological symptoms, IVDU, steroid use, or history of cancer. MD elicited complaint: back pain Onset (ago): day(s) Timing: constant Severity: severe Location: left lower back Radiation: none Exacerbating factors: movement Associated symptoms: Deny abdominal pain, difficulty walking, fecal incontinence, fever(s) or syncope Related Data Previous Rx's ?Medication ?Instructions ?Recorded fluticasone propionate 50 2 spray intranasal DAILY PRN 09/16/22 mcg/actuation nasal allergy symptoms #16 grams spray,suspension albuterol sulfate 90 mcg/actuation 1 inh inhalation QI D PRN shortness 08/11/23 aerosol inhaler of breath or wheezing #8.5 g estefany budesonide-formoterol HFA 80 See Rx Instructions .Rout e 08/11/23 mcg-4.5 mcg/actuation aerosol .COMPLEX #10.2 grams inhaler (Symbicort) fluconazole 150 mg tablet 150 mg PO Q3D 2 doses #2 tab s 11/28/24 hydroxyzine pamoate 25 mg capsule 50 mg (2 x 25 mg) PO Q6H PRN 12/13/24 Anxiety 30 days #120 caps thiamine mononitrate (vit B1) 100 100 mg PO DAILY 30 d ays #30 tabs 12/13/24 mg tablet (Vitamin B-1 (mononitrate)) trazodone 50 mg tablet 50 mg PO BEDTIME PRN Sleep 3 0 days 12/13/24 #30 tabs quetiapine 300 mg tablet See Rx Instructions .Route 0 01/03/25 .COMPLEX #60 tabs duloxetine 60 mg capsule,delayed 60 mg PO DAILY #30 ca ps 01/10/25 release quetiapine 100 mg tablet See Rx Instructions .Route 0 01/10/25 .COMPLEX #60 tabs ketorolac 10 mg tablet 10 mg PO Q8H PRN pain 5 days #15 02/15/25 tabs methocarbamol 750 mg tablet 750 mg PO Q8H 5 days #15 t abs 02/15/25 Allergies Allergy/AdvReac Type Severity Reaction Status Date / Time codeine Allergy Mild ADR-Nausea Verified 01/10/25 08:21 Review of Systems General: Reports: 10 or more systems reviewed and unremarkable except in HPI and below Const: Reports: other (denies trauma); Denies: fever(s), change in weight or night sweats Card: Denies: chest pain, lightheadedness or syncope Resp: Denies: dyspnea GI: Denies: abdominal pain or fecal incontinence : Denies: urinary incontinence Musc: Reports: back pain; Denies: neck pain or extremity pain Skin/Breast: Denies: rash or skin pain Neuro: Denies: headache(s), numbness in extremities, weakness in extremities, sensory changes, lack of coordination, difficulty walking, frequent falls or involuntary movements PFSH ED PFSH: Medical History No pertinent past medical history neghx: htn,dm,thyroid,dvt/pe Asthma Anxiety Cannabis use disorder, moderate, in early remission, dependence On combination antipsychotic drug therapy Bipolar II disorder Fistula Tubal Surgical History Hx of tubal ligation (~2002) History of cholecystectomy Previous section Family History Grandmother Hypercholesteremia Paternal Mother Bipolar 1 disorder Moderate major depression Father Diabetes Other Dementia Denies family history of Colon cancer Ovarian cancer CAD (coronary artery disease) Clotting disorder Heart disease Chronic kidney disease (CKD) Breast cancer Anesthesia complication Bleeding disorder Lung disease Cancer Hypertension Uterine cancer Thyroid disease Stroke Social History Smoking and tobacco/nicotine status: never used tobacco/nicotine Alcohol intake: current Alcohol intake frequency: holidays/special occasions only Alcohol type: beer Substance/Drug Use: never Lives independently: Yes Marital status: Number of children: 4 service: No Current occupational status: employed 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 Current gender identity: Female Special mira needs: No Agree to transfusion: Yes Female Reproductive History: Date of last menstrual period: 02/07/25 Para: 1 Spontaneous abortions: No Physical Exam Const: COMMON NORMALS: no acute distress, patient oriented x3, no limitations, healthy appearing and alert Resp: COMMON NORMALS: normal respiratory effort, No retractions, No use of accessory muscles and clear to auscultation bilaterally AUSCULTATION: clear to auscultation bilaterally Cardio: COMMON NORMALS: regular rate, regular rhythm, S1 normal heart sound present and S2 normal heart sound present RATE: regular rate RHYTHM: regular rhythm HEART SOUNDS: S1 normal heart sound present and S2 normal heart sound present Back/Pelvis: COMMON NORMALS: straight leg raise negative bilaterally OTHER: Normal visual examination. No spinous process tenderness or paracervical, parathoracic, or paralumbar tenderness to palpation. Left lower back pain with lateral rotation at the hips. Extremity: COMMON NORMALS: normal to inspection and full ROM Neuro: COMMON NORMALS: patient oriented x3, moves all extremities, no focal motor deficits, no sensory deficits noted, deep tendon reflexes 2+ bilaterally and gait normal SENSORIUM/ORIENTATION: Yes alert OTHER: L3, L4, L5, and S1 nerve sensations intact. Normal knee jerk and ankle jerk reflexes. Skin: COMMON NORMALS: no rashes or lesions noted GENERAL SKIN EXAM: no rashes or lesions noted Course Vital Signs: Vital signs: Vital Signs Temperature 98.2 F 02/15/25 10:52 Pulse Rate 71 02/15/25 14:30 Respiratory Rate 18 02/15/25 10:52 Blood Pressure 147/100 02/15/25 14:30 Pulse Oximetry 96 02/15/25 14:30 Oxygen Delivery Me thod Room Air 02/15/25 14:30 MDM - Back Pain/Injury Medical Decision Making Patient presenting with atraumatic left lower back pain since Friday, no red flag symptoms with history or on exam. No need for imaging or workup here, she did not have any urinary symptoms as well and I do not have suspicion for cystitis or ureterolithiasis. She had some improvement after IM medications here, I suspect benign musculoskeletal left lower back pain and she is encouraged to treat at home and return with any new or worsening. No radiology studies performed this visit Discharge Plan Discharge Patient Disposition: Home Clinical Impression: Musculoskeletal back pain Condition: Stable Prescriptions: New ketorolac 10 mg tablet 10 mg PO Q8H PRN (Reason: pain) 5 Days Qty: 15 0RF methocarbamol 750 mg tablet 750 mg PO Q8H 5 Days Qty: 15 0RF Discontinued ibuprofen 800 mg tablet 800 mg PO Q8H PRN (Reason: pain) Qty: 20 0RF No Action budesonide-formoterol [Symbicort] 80-4.5 mcg/actuation HFA aerosol inhaler See Rx Instructions .ROUTE .COMPLEX Qty: 10.2 3RF Dose Instruction: INHALE TWO PUFFS TWICE DAILY Rx Instructions: INHALE TWO PUFFS TWICE DAILY albuterol sulfate 90 mcg/actuation HFA aerosol inhaler 1 inh inhalation QID PRN (Reason: shortness of breath or wheezing) Qty: 8.5 3RF fluconazole 150 mg tablet 150 mg PO Q3D Qty: 2 1RF quetiapine 100 mg tablet See Rx Instructions .ROUTE .COMPLEX Qty: 60 2RF Dose Instruction: TAKE 1 TABLET BY MOUTH TWICE DAILY Rx Instructions: TAKE 1 TABLET BY MOUTH TWICE DAILY duloxetine 60 mg capsule,delayed release(DR/EC) 60 mg PO DAILY Qty: 30 2RF fluticasone propionate 50 mcg/actuation spray,suspension 2 spray intranasal DAILY PRN (Reason: allergy symptoms) Qty: 16 1RF Rx Instructions: administer into each nostril quetiapine 300 mg tablet See Rx Instructions .ROUTE .COMPLEX Qty: 60 2RF Dose Instruction: TAKE TWO TABLETS BY MOUTH AT BEDTIME Rx Instructions: TAKE TWO TABLETS BY MOUTH AT BEDTIME hydroxyzine pamoate 25 mg Capsule 50 mg PO Q6H PRN (Reason: Anxiety) 30 Days Qty: 120 1RF thiamine mononitrate (vit B1) [Vitamin B-1 (mononitrate)] 100 mg Tablet 100 mg PO DAILY 30 Days Qty: 30 1RF trazodone 50 mg Tablet 50 mg PO BEDTIME PRN (Reason: Sleep) 30 Days Qty: 30 1RF Discharge Orders: Discharge ED (Routine); Ordered 02/15/25 Ordered By: Eron Zhao Referrals: Shane Mckeon MD [Primary Care Provider, [facility]] Patient Instructions: Patient Portal & Joseph Instructions Activity Restrictions/Additional Instructions: Low Back Pain Discharge Diagnosis: Acute left lower musculoskeletal back pain. Medications: - Methocarbamol (Robaxin): Skeletal muscle relaxant. Use as prescribed for short-term pain relief. Monitor for sedation and [employer] side effects; avoid driving or operating heavy machinery if drowsy.[1] https://www.acpjournals.org/doi/abs/10.26X30-7946?url_ver=&rfr_id= michael:rid:crossref.org&rfr_dat=cr_pub%20%200pubmed [2] https://www.acpjournals.org/doi/10.7326/7530-8898-359-5-682933909-45947?url_ver= &rfr_id=michael:rid:crossref.org&rfr_dat=cr_pub%20%200pubmed [3] https://pubmed.ncbi.nlm.nih.gov/71566455 - Ketorolac (Toradol): NSAID. Use the lowest effective dose for the shortest duration necessary. Monitor for gastrointestinal and renal adverse effects; avoid if history of peptic ulcer disease, renal impairment, or bleeding disorders.[1] https://www.acpjournals.org/doi/abs/10.2367?url_ver=&r fr_id=michael:rid:crossref.org&rfr_dat=cr_pub%20%200pubmed [4] https://www.nejm.org/doi/full/10.1056/AEBDfs2300034 [2] https://www.acpjournals.org/doi/10.7326/5460-0355-934-7-630223112-09911?url_ver= &rfr_id=michael:rid:crossref.org&rfr_dat=cr_pub%20%200pubmed [3] https://pubmed.ncbi.nlm.nih.gov/67234040 Conservative Therapy Options for Home: - Activity: Remain active as tolerated; avoid bed rest. Gradual return to normal activities is recommended, even if mild pain persists.[4] https://www.nejm.org/doi/full/10.1056/WHDCoh6225597 [5] https://doi.org/10.1097/JOM.8770992615046126 [2] https://www.acpjournals.org/doi/10.7326/1164-5741-462-7-622113618-19745?url_ver= Z39&rfr_id=michael:rid:crossref.org&rfr_dat=cr_pub%20%200pubmed - Superficial Heat: Application of a heating pad or warm compress to the affected area may provide moderate pain relief.[1] https://www.acpjournals.org /doi/abs/10.7326D30-4132?url_ver=Z&rfr_id=michael:rid:crossref.org&rfr_da t=cr_pub%20%200pubmed [4] https://www.nejm.org/doi/full/10.1056/MNRIee7292299 [5] https://doi.org/10.1097/JOM.3655159553992235 - Stretching and Aerobic Exercise: Gentle stretching (directional preference exercises) and progressive aerobic activity are recommended. Focus on movements that centralize or reduce pain.[5] https://doi.org/10.1097/JOM.0837270483288680 - Massage Therapy: May provide small to moderate improvement in pain and functi on.[1] https://www.acpjournals.org/doi/abs/10.7326/U68-5354?url_ver=Z&rfr_id= michael:rid:crossref.org&rfr_dat=cr_pub%20%200pubmed [4] https://www.nejm.org/doi/full/10.1056/YTYDsr0888232 - Spinal Manipulation or Acupuncture: May be considered if available and patient preference, though evidence for benefit is low to moderate.[1] https://w ww.acpjournals.org/doi/abs/10.7326/K22-3744?url_ver=&rfr_id=michael:rid:c rossref.org&rfr_dat=cr_pub%20%200pubmed [4] https://www.nejm.org/doi/full/10.1056/OUFFtd6581570 - Education: Provide reassurance regarding the favorable prognosis of acute low back pain. Most cases improve substantially within the first month. Written materials such as The Back Book are recommended for patient education.[1] https://www.acpjournals.org/doi/abs/10.7326Z89-3340?url_ver=&rfr_id= michael:rid:crossref.org&rfr_dat=cr_pub%20%200pubmed [4] https://www.nej m.org/doi/full/10.1056/IMMWik0005155 [2] https://www.acpjournals.org/doi/10.7326/8457-1929-254-6-563873563-64675?url_ver= Z&rfr_id=michael:rid:crossref.org&rfr_dat=cr_pub%20%200pubmed Work Note: Patient is provided with work limitations as clinically indicated. Gradual elimination of restrictions is recommended as symptoms improve.[5] https://doi.org/10.1097/JOM.1510875784106902 Return Precautions: - Return for evaluation if any of the following occur: - New or worsening neurological deficits (e.g., weakness, numbness, loss of bowel or bladder control) - Severe or progressive pain unresponsive to conservative management - Signs of infection (fever, chills, unexplained weight loss) - Pain persisting beyond 4-8 weeks despite adherence to conservative therapy[4] https://www.nejm.org/doi/full/10.1056/PINWyr5687609 [5] https://doi.org/10.1097/JOM.4338400976818808 [6] https://pubmed.ncbi.nlm.nih .gov/27480614 Additional Considerations: - Avoid cumulative use of ineffective treatments; discontinue modalities that do not provide incremental benefit.[5] https://doi.org/10.1097/JOM.8187208515935223 - If pain persists beyond 2 months, or if there is concern for chronicity, consider referral for supervised exercise therapy or behavioral therapy.[4] https://www.nejm.org/doi/full/10.1056/XPVLew5761820 [6] https://pubmed.ncbi.nlm.nih.gov/72746941 - Screen for psychosocial risk factors (yellow flags) that may increase risk of chronicity; address as appropriate.[6] https://pubmed.ncbi.nlm.nih.gov/27879308 Summary: Conservative management with activity, heat, stretching, and education is first-line. NSAIDs and muscle relaxants may be used short-term for symptom relief. Most patients experience substantial improvement within weeks. Monitor for red flag symptoms and reassess if pain persists or worsens.[1] https://www.acpjournals.org/doi/abs/10.7326/Y97-5748?url_ver=Z39&rfr_id= michael:rid:crossref.org&rfr_dat=cr_pub%20%200pubmed [4] https://www.nejm. org/doi/full/10.1056/BNCNij3835666 [5] https://doi.org/10.1097/JOM.1179747524553222 [2] https://www.acpjournals.org/doi/10.7326/2998-0986-028-3-039119250-96028?url_ver= Z39.&rfr_id=michael:rid:crossref.org&rfr_dat=cr_pub%20%200pubmed [3] https://pubmed.ncbi.nlm.nih.gov/88050589 References * Noninvasive Treatments for Acute, Subacute, and Chronic Low Back Pain: A Clinical Practice Guideline From the [employer] https://www.acpjournals.org/doi/abs/10.7326/S67-3708?url_ver=Z&rfr_i d=michael:rid:crossref.org&rfr_dat=cr_pub%20%200pubmed . Minesh Correa, Masoud LUKE, Rob RM, et al. Annals of Internal Medicine. 2017;166(7):514-530. doi:10.7326/M16- 2367. * Diagnosis and Treatment of Low Back Pain: A Joint Clinical Practice Guideline From the [employer] and the [place] [employer] https://www.acpjournals.org/doi/10.7326/7557-3426-491-4-719635279-81513?url_ve r=Z&rfr_id=michael:rid:crossref.org&rfr_dat=cr_pub%20%200pubmed . Minesh Martino, Syeda V, et al. Annals of Internal Medicine. 2007;147(7):478-91. doi:10.7326/1009-6759-353-6-015715138-70165. * Medications for Treating Low Back Pain in Adults. Evidence for the Use of Paracetamol, Opioids, Nonsteroidal Anti-Inflammatories, Muscle Relaxants, Antibiotics, and Antidepressants: An Overview for Musculoskeletal Clinicians https://pubmed.ncbi.nlm.nih.gov/72454154 . Taurus JACK, Alejandro CA. The Journal of Orthopaedic and Sports Physical Therapy. 2021;52(7):425-431. doi:10.2519/jospt.202.93943. * Nonspecific Low Back Pain https://www.nejm.org/doi/full/10.1056/JLHOxy4204901 . Bre Gardiner. The [place] Journal of Medicine. 2021;386(18):8667-2952. doi:10.1056/XZMVpy6766570. * Non-Invasive and Minimally Invasive Management of Low Back Disorders https://doi.org/10.1097/JOM.5938414641339537 . Arin KT, Dino R, Kevin CHENJ, et al. Journal of Occupational and Environmental Medicine. 2020;62(3):w666-m081. doi:10.1097/JOM.0470777118536974. * Chronic Low Back Pain in Adults: Evaluation and Management https://pubmed.ncbi.nlm.nih.gov/36502460 . Ace LAGUNA, Bk SC, Ian RB. [employer]. 2023;109(3):233-244. Stand Alone Forms: Work/School Release Print Language: [place]dean Coding Level of Care Code ED Airplane Patroller for Chg Fwd Documented by User: Naldo Carl DO 02/15/25 15:41 HPI - Back Pain/Injury General: Chief Complaint: Back Pain/Injury Stated Complaint: back pain Time Seen by Provider: 02/15/25 13:48 Related Data Previous Rx's ?Medication ?Instructions ?Recorded fluticasone propionate 50 2 spray intranasal DAILY PRN 09/16/22 mcg/actuation nasal allergy symptoms #16 grams spray,suspension albuterol sulfate 90 mcg/actuation 1 inh inhalation QI D PRN shortness 08/11/23 aerosol inhaler of breath or wheezing #8.5 g estefany budesonide-formoterol HFA 80 See Rx Instructions .Rout e 08/11/23 mcg-4.5 mcg/actuation aerosol .COMPLEX #10.2 grams inhaler (Symbicort) fluconazole 150 mg tablet 150 mg PO Q3D 2 doses #2 tab s 11/28/24 hydroxyzine pamoate 25 mg capsule 50 mg (2 x 25 mg) PO Q6H PRN 12/13/24 Anxiety 30 days #120 caps thiamine mononitrate (vit B1) 100 100 mg PO DAILY 30 d ays #30 tabs 12/13/24 mg tablet (Vitamin B-1 (mononitrate)) trazodone 50 mg tablet 50 mg PO BEDTIME PRN Sleep 3 0 days 12/13/24 #30 tabs quetiapine 300 mg tablet See Rx Instructions .Route 0 01/03/25 .COMPLEX #60 tabs duloxetine 60 mg capsule,delayed 60 mg PO DAILY #30 ca ps 01/10/25 release quetiapine 100 mg tablet See Rx Instructions .Route 0 01/10/25 .COMPLEX #60 tabs ketorolac 10 mg tablet 10 mg PO Q8H PRN pain 5 days #15 02/15/25 tabs methocarbamol 750 mg tablet 750 mg PO Q8H 5 days #15 t abs 02/15/25 Allergies Allergy/AdvReac Type Severity Reaction Status Date / Time codeine Allergy Mild ADR-Nausea Verified 01/10/25 08:21 [facility] ED PFSH: Medical History No pertinent past medical history neghx: htn,dm,thyroid,dvt/pe Asthma Anxiety Cannabis use disorder, moderate, in early remission, dependence On combination antipsychotic drug therapy Bipolar II disorder Fistula Tubal Surgical History Hx of tubal ligation (~2002) History of cholecystectomy Previous section Family History Grandmother Hypercholesteremia Paternal Mother Bipolar 1 disorder Moderate major depression Father Diabetes Other Dementia Denies family history of Colon cancer Ovarian cancer CAD (coronary artery disease) Clotting disorder Heart disease Chronic kidney disease (CKD) Breast cancer Anesthesia complication Bleeding disorder Lung disease Cancer Hypertension Uterine cancer Thyroid disease Stroke Social History Smoking and tobacco/nicotine status: never used tobacco/nicotine Alcohol intake: current Alcohol intake frequency: holidays/special occasions only Alcohol type: beer Substance/Drug Use: never Lives independently: Yes Marital status: Number of children: 4 service: No Current occupational status: employed 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 No need for imaging or workup here, she did not have any urinary symptoms as well and I do not have suspicion for cystitis or ureterolithiasis. She had some improvement after IM medications here, I suspect benign musculoskeletal left lower back pain and she is encouraged to treat at home and return with any new or worsening. Chart reviewed and patient discussed with midlevel. Agree with assessment and plan. Discharge Plan Discharge Patient Disposition: Home Clinical Impression: Musculoskeletal back pain Condition: Stable Prescriptions: New ketorolac 10 mg tablet 10 mg PO Q8H PRN (Reason: pain) 5 Days Qty: 15 0RF methocarbamol 750 mg tablet 750 mg PO Q8H 5 Days Qty: 15 0RF Discontinued ibuprofen 800 mg tablet 800 mg PO Q8H PRN (Reason: pain) Qty: 20 0RF No Action budesonide-formoterol [Symbicort] 80-4.5 mcg/actuation HFA aerosol inhaler See Rx Instructions .ROUTE .COMPLEX Qty: 10.2 3RF Dose Instruction: INHALE TWO PUFFS TWICE DAILY Rx Instructions: INHALE TWO PUFFS TWICE DAILY albuterol sulfate 90 mcg/actuation HFA aerosol inhaler 1 inh inhalation QID PRN (Reason: shortness of breath or wheezing) Qty: 8.5 3RF fluconazole 150 mg tablet 150 mg PO Q3D Qty: 2 1RF quetiapine 100 mg tablet See Rx Instructions .ROUTE .COMPLEX Qty: 60 2RF Dose Instruction: TAKE 1 TABLET BY MOUTH TWICE DAILY Rx Instructions: TAKE 1 TABLET BY MOUTH TWICE DAILY duloxetine 60 mg capsule,delayed release(DR/EC) 60 mg PO DAILY Qty: 30 2RF fluticasone propionate 50 mcg/actuation spray,suspension 2 spray intranasal DAILY PRN (Reason: allergy symptoms) Qty: 16 1RF Rx Instructions: administer into each nostril quetiapine 300 mg tablet See Rx Instructions .ROUTE .COMPLEX Qty: 60 2RF Dose Instruction: TAKE TWO TABLETS BY MOUTH AT BEDTIME Rx Instructions: TAKE TWO TABLETS BY MOUTH AT BEDTIME hydroxyzine pamoate 25 mg Capsule 50 mg PO Q6H PRN (Reason: Anxiety) 30 Days Qty: 120 1RF thiamine mononitrate (vit B1) [Vitamin B-1 (mononitrate)] 100 mg Tablet 100 mg PO DAILY 30 Days Qty: 30 1RF trazodone 50 mg Tablet 50 mg PO BEDTIME PRN (Reason: Sleep) 30 Days Qty: 30 1RF Discharge Orders: Discharge ED (Routine); Ordered 02/15/25 Ordered By: Eron Zhao Referrals: Shane Mckeon MD [Primary Care Provider, [facility]] Patient Instructions: Patient Portal & Joseph Instructions Activity Restrictions/Additional Instructions: Low Back Pain Discharge Diagnosis: Acute left lower musculoskeletal back pain. Medications: - Methocarbamol (Robaxin): Skeletal muscle relaxant. Use as prescribed for short-term pain relief. Monitor for sedation and [employer] side effects; avoid driving or operating heavy machinery if drowsy.[1] https://www.acpjournals.org/doi/abs/10.7326/W65-2538?url_ver=Z39&rfr_id= michael:rid:crossref.org&rfr_dat=cr_pub%20%200pubmed [2] https://www.acpjournals.org/doi/10.7326/2498-9323-871-4-365838223-69739?url_ver= Z&rfr_id=michael:rid:crossref.org&rfr_dat=cr_pub%20%200pubmed [3] https://pubmed.ncbi.nlm.nih.gov/70063297 - Ketorolac (Toradol): NSAID. Use the lowest effective dose for the shortest duration necessary. Monitor for gastrointestinal and renal adverse effects; avoid if history of peptic ulcer disease, renal impairment, or bleeding disorders.[1] https://www.acpjournals.org/doi/abs/10.7326F39-2897?url_ver=Z39&rfr_id= michael:rid:crossref.org&rfr_dat=cr_pub%20%200pubmed [4] https://www.nejm.org/doi/full/10.1056/BJWIav2827850 [2] https://www.acpjournals.org/doi/10.7326/8552-4075-270-0-544368434-57816?url_ver= Z39&rfr_id=michael:rid:crossref.org&rfr_dat=cr_pub%20%200pubmed [3] https://pubmed.ncbi.nlm.nih.gov/49127769 Conservative Therapy Options for Home: - Activity: Remain active as tolerated; avoid bed rest. Gradual return to normal activities is recommended, even if mild pain persists.[4] https://www.nejm.org/doi/full/10.1056/FJPZic8401809 [5] https://doi.org/10.1097/JOM.1940062768738438 [2] https://www.acpjournals.org/doi/10.7326/7211-4659-726-5-930870072-34985?url_ver= Z39&rfr_id=michael:rid:crossref.org&rfr_dat=cr_pub%20%200pubmed - Superficial Heat: Application of a heating pad or warm compress to the affected area may provide moderate pain relief.[1] https://www.acpjournals.org/doi/abs/10.7326/C65-5482?url_ver=Z39.88-2 003&rfr_id=michael:rid:crossref.org&rfr_dat=cr_pub%20%200pubmed [4] https://www.nejm.org/doi/full/10.1056/AJSTmq9148841 [5] https://doi.org/10.1097/JOM.8154117361424379 - Stretching and Aerobic Exercise: Gentle stretching (directional preference exercises) and progressive aerobic activity are recommended. Focus on movements that centralize or reduce pain.[5] https://doi.org/10.1097/JOM.1099591330303760 - Massage Therapy: May provide small to moderate improvement in pain and function.[1] https://www.acpjournals. org/doi/abs/10.7326/D50-6465?url_ver=&rfr_id=michael:rid:crossref.org&rfr _dat=cr_pub%20%200pubmed [4] https://www.nejm.org/doi/full/10.1056/AUKSbr7167239 - Spinal Manipulation or Acupuncture: May be considered if available and patient preference, though evidence for benefit is low to moderate.[1] https://www.acpjournals.org/doi/abs/10.7326/R36-1151?url_ver=2002&rfr_id=michael:rid:crossref.org&rfr_dat=cr_pub%20%200pubmed [4] https://www.nejm.org/doi/full/10.1056/CJPAjg9327471 - Education: Provide reassurance regarding the favorable prognosis of acute low back pain. Most cases improve substantially within the first month. Written materials such as The Back Book are recommended for patient education.[1] https://www.acpjournals.org/doi/abs/10.7326/Y74-9893?url_ver=&rfr_id= michael:rid:crossref.org&rfr_dat=cr_pub%20%200pubmed [4] https://www.nejm.org/doi/full/10.1056/LABLsf6150744 [2] h ttps://www.acpjournals.org/doi/10.7326/2422-2404-547-0-805423185-89621?url_ver=Z &rfr_id=michael:rid:crossref.org&rfr_dat=cr_pub%20%200pubmed Work Note: Patient is provided with work limitations as clinically indicated. Gradual elimination of restrictions is recommended as symptoms improve.[5] https://doi.org/10.1097/JOM.8173974992215070 Return Precautions: - Return for evaluation if any of the following occur: - New or worsening neurological deficits (e.g., weakness, numbness, loss of bowel or bladder control) - Severe or progressive pain unresponsive to conservative management - Signs of infection (fever, chills, unexplained weight loss) - Pain persisting beyond 4-8 weeks despite adherence to conservative therapy[4] https://www.nejm.org/doi/full/10.1056/WTEBbw0514844 [5] https://doi.org/10.1097/JOM.6371842867891653 [6] https://pubmed.ncbi.nlm.nih.gov/75673431 Additional Considerations: - Avoid cumulative use of ineffective treatments; discontinue modalities that do not provide incremental benefit.[5] https://doi.org/10.1097/JOM.75737320229 37599 - If pain persists beyond 2 months, or if there is concern for chronicity, consider referral for supervised exercise therapy or behavioral therapy.[4] https://www.nejm.org/doi/full/10.1056/IJZGnd9151448 [6] https://pubmed.ncbi.nlm.nih.gov/86633905 - Screen for psychosocial risk factors (yellow flags) that may increase risk of chronicity; address as appropriate.[6] https://pubmed.ncbi.nlm.nih.gov/15687086 Summary: Conservative management with activity, heat, stretching, and education is first-line. NSAIDs and muscle relaxants may be used short-term for symptom relief. Most patients experience substantial improvement within weeks. Monitor for red flag symptoms and reassess if pain persists or worsens.[1] https://www.acpjournals.org/doi/abs/10.7326/V08-6608?url_ver=Z39.88-2002&rfr_id= michael:rid:crossref.org&rfr_dat=cr_pub%20%200pubmed [4] https://www.nejm.org/doi/full/10.1056/ZKOFow0757719 [5] htt ps://doi.org/10.1097/JOM.9193099527339598 [2] https://www.acpjournals.org/doi/10.7326/3971-9814-417-0-847611413-73770?url_ver= &rfr_id=michael:rid:crossref.org&rfr_dat=cr_pub%20%200pubmed [3] ht tps://pubmed.ncbi.nlm.nih.gov/81333040 References * Noninvasive Treatments for Acute, Subacute, and Chronic Low Back Pain: A Clinical Practice Guideline From the [employer] https://www.acpjournals.org/doi/abs/10.7326/U09-8006?url_ver=&rfr_i d=michael:rid:crossref.org&rfr_dat=cr_pub%20%200pubmed . Minesh Correa, Masoud LUKE, Rob RM, et al. Annals of Internal Medicine. 2017;166(7):514-530. doi:10.7326/M16- 2367. * Diagnosis and Treatment of Low Back Pain: A Joint Clinical Practice Guideline From the [employer] and the [employer] https://www.acpjournals.org/doi/10.7326/0529-0412-237-0-882409580-39461?url_ve r=Z&rfr_id=michael:rid:crossref.org&rfr_dat=cr_pub%20%200pubmed . Minesh Martino, Syeda V, et al. Annals of Internal Medicine. 2007;147(7):478-91. doi:10.7326/9592-9093-035-2-886492078-72357. * Medications for Treating Low Back Pain in Adults. Evidence for the Use of Paracetamol, Opioids, Nonsteroidal Anti-Inflammatories, Muscle Relaxants, Antibiotics, and Antidepressants: An Overview for Musculoskeletal Clinicians https://pubmed.ncbi.nlm.nih.gov/17593343 . Taurus JACK, Alejandro SALGADO. The Journal of Orthopaedic and Sports Physical Therapy. 2021;52(7):425-431. doi:10.2519/jospt.2.61892. * Nonspecific Low Back Pain https://www.nejm.org/doi/full/10.1056/ZGCSbd9776135 . Matthew Correa, Bre DUNN. The [place] Journal of Medicine. 2021;386(18):0215-8765. doi:10.1056/XGZKha1453493. * Non-Invasive and Minimally Invasive Management of Low Back Disorders https://doi.org/10.1097/JOM.1665255037476144 . Arin KT, Dino R, Kevin CHENJ, et al. Journal of Occupational and Environmental Medicine. 2020;62(3):i762-q953. doi:10.1097/JOM.0086209580119326. * Chronic Low Back Pain in Adults: Evaluation and Management https://pubmed.ncbi.nlm.nih.gov/77456904 . Ace LAGUNA, Bk SC, Ian RB. [employer]. 2023;109(3):233-244. 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
[2025-02-15] MEDS: orphenadrine 30 mg/mL Inj 2 mL 60 MG IM (14:15)
[2025-02-15 14:30] VITALS: BP 147/100; PULSE 71; O2SAT 96
== END 2025-02-15 15:17 | disposition home or self-care (01) ==
PROVIDERS: Emergency Provider Physician Assistant; PCP Family Medicine
DX: M54.89 Other dorsalgia (principal)
CPT/HCPCS: 96372; 99284; J1100; J1885; J2360